=== PATIENT | female | born 1985 | race African-American/Black ===

== ENCOUNTER 2018-08-07 10:10 | Emergency (ER) | payer SELFPAY ==
[~2018-08-07] VITALS: Ht 160 cm; Wt 77.0 kg
[2018-08-07] MEDS ORDERED: ACETAMINOPHEN 325MG TABLET PO ONE (12:45)
[2018-08-07 13:02] VITALS: BP 134/100
== END 2018-08-07 13:03 | disposition home or self-care (01) ==
LOC: ER 10:10
DX: S09.90XA Unspecified injury of head, initial encounter (principal); Y08.89XA Assault by other specified means, initial encounter; Y93.89 Activity, other specified; Y92.89 Other specified places as the place of occurrence of the external cause; Y99.8 Other external cause status
CPT/HCPCS: 99282